=== PATIENT | female | born 1935 | race Caucasian/White ===

== ENCOUNTER 2017-01-18 12:40 | Inpatient (IN) | payer OTHER ==
[~2017-01-18] VITALS: Ht 165.1 cm; Wt 55.9 kg
[2017-01-18 14:05] LABS: HEMOGLOBIN 13.5 gm/dl (12.3-15.3); RED BLOOD COUNT 4.51 M/UL (4.00-5.10); WHITE BLOOD COUNT 10.6 K/UL (4.5-11.0)
[2017-01-18] MEDS ORDERED: OMEPRAZOLE20 M1 PO (21:54)
[2017-01-18] MEDS ORDERED: CLARITIN 10MG T10 MG PO (21:54)
[2017-01-18] MEDS ORDERED: DILT-XR240 MG PO (21:55)
[2017-01-18] MEDS ORDERED: DITROPAN 5 MG TA5 MG PO (21:55)
[2017-01-18] MEDS ORDERED: CELEBREX 100MG100 MG PO (21:55)
[2017-01-18] MEDS ORDERED: ARICEPT5 MG PO (21:56)
[2017-01-18] MEDS ORDERED: HYDROCODON-ACE1 EAC4 PO (21:56)
[2017-01-19 04:47] LABS: HEMOGLOBIN 12.5 gm/dl (12.3-15.3); RED BLOOD COUNT 4.15 M/UL (4.00-5.10); WHITE BLOOD COUNT 8.7 K/UL (4.5-11.0)
[2017-01-19 05:06] LABS: BUN/CREATININE RATIO 26 (0-10)
[2017-01-21 06:14] LABS: RED BLOOD COUNT 4.33 M/UL (4.00-5.10); WHITE BLOOD COUNT 9.3 K/UL (4.5-11.0)
[2017-01-21 06:39] LABS: BUN/CREATININE RATIO 35 (0-10)
[2017-01-22] MEDS ORDERED: HYDROCODON-ACE1 EAC4 PO (13:20)
[2017-01-22] MEDS ORDERED: DILTIAZEM 24HR120 MG PO (13:38)
== END 2017-01-22 13:32 | disposition home or self-care (01) | DRG 554 ==
LOC: ER1 12:40 → ZEROF 16:05 → M/S 16:05 → ZEROF 16:05 → M/S 21:14
PROVIDERS: Emergency Medicine; ADMIT Hospitalist
DX: M87.852 Other osteonecrosis, left femur (principal); G89.29 Other chronic pain; Z90.710 Acquired absence of both cervix and uterus; Z80.0 Family history of malignant neoplasm of digestive organs; I12.9 Hypertensive chronic kidney disease with stage 1 through stage 4 chronic kidney disease, or unspecified chronic kidney disease; N18.3 Chronic kidney disease, stage 3 (moderate); H91.90 Unspecified hearing loss, unspecified ear; Z79.899 Other long term (current) drug therapy; M16.12 Unilateral primary osteoarthritis, left hip
CPT/HCPCS: ECHO; 36415; 71010; 73502; 80048; 80053; 85025; 85027; 85610; 85730; 86140; 93005; 93306; 96374; 96375; 96376; 97116; 97530; 99284; J2270; J2405